=== PATIENT | male | born 1950 | race American Indian/Alaskan Native ===

== ENCOUNTER 2019-03-17 11:07 | Day surgery (SDC) | payer MEDICARE, OTHER ==
[2019-03-17 12:31] VITALS: BP 147/83
== END 2019-03-17 11:08 | disposition home or self-care (01) ==
LOC: OR 11:07
PROVIDERS: ATTEND Specialist
DX: H26.492 Other secondary cataract, left eye (principal); Z88.5 Allergy status to narcotic agent; Z79.899 Other long term (current) drug therapy; Z87.891 Personal history of nicotine dependence; Z98.41 Cataract extraction status, right eye; Z98.42 Cataract extraction status, left eye; Z86.718 Personal history of other venous thrombosis and embolism; Z90.49 Acquired absence of other specified parts of digestive tract; Z87.442 Personal history of urinary calculi; Z72.89 Other problems related to lifestyle; Z98.890 Other specified postprocedural states